=== PATIENT | female | born 1980 | race African-American/Black ===

== ENCOUNTER 2018-06-04 13:16 | Emergency (ER) | payer OTHER ==
[~2018-06-04] VITALS: Ht 162.6 cm; Wt 68.0 kg
[~2018-06-04 13:16] MED LIST: BACTROBAN 2% OI15 GM TOPIC; IBUPROFEN600 MG ORAL; NEURONTIN100 MG ORAL; NEXIUM20 M1 ORAL; NKM; NORCO 5-325 TA1 EACH ORAL; PREDNISONE50 MG ORAL; ROBAXIN-750750 MG PO; TYLENOL325 MG ORAL; ZOFRAN ODT4 MG ORAL
--- NOTE | 2018-06-04 13:36 | Emergency Room Report ---
History of Present Illness General Chief Complaint: Sore Throat Source: Patient Present Illness HPI 37-year-old female with no significant past medical history here complaining of 10 out of 10 sore throat 2 days. Patient went to her primary care provider yesterday and was given amoxicillin 500 mg 3 times a day and hasn't started the medication today. Patient has been taking ibuprofen and Tylenol for pain and complains of worsening pain. Denies rhinorrhea, congestion, cough, fever or chills patient wants something stronger for the pain denies. Radiation tingling and numbness. Denies chest pain, SOB, palpitation, nausea vomiting, abdominal pain and urinary symptoms. Has been able to swallow liquids and solids without problem. 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 Hx Gastrointestinal Problems: No Hx Dialysis: No Hx Neurological Problems: No Hx Cerebrovascular Accident: No Hx Seizures: No Review of Systems All Other Systems: negative except mentioned in HPI Physical Exam Vital Signs Date Time Temp Pulse Resp B/P (MAP) Pulse Ox O2 Delivery O2 Flow Rate FiO2 06/04/18 13:20 98.2 71 21 100/58 97 Room Air Sp02 EP Interpretation: reviewed General Appearance: normal inspection, well appearing, no apparent distress Head: normocephalic, atraumatic Eyes: bilateral eye normal inspection, bilateral eye PERRL ENT: hearing grossly normal, normal pharynx, no angioedema, TMs + canals normal , uvula midline, pharyngeal erythema, tonsillar exudate Neck: normal inspection, full range of motion, supple Respiratory: normal inspection, chest non-tender, lungs clear, normal breath sounds, no rhonchi Cardiovascular #1: normal inspection, normal peripheral pulses, regular rate, rhythm, no edema, no gallop Gastrointestinal: normal inspection, soft Rectal: deferred Neurologic: normal inspection, alert, oriented x3 Psychiatric: normal inspection, judgement/insight normal Skin: normal inspection, normal color, no rash, palpation normal Lymphatic: normal inspection, no adenopathy Medical Decision Making PA Attestation all diagnosis and treatment plans are reviewed and discussed my supervising physician Dr. Pacheco Diagnostic Impression: Primary Impression: Strep pharyngitis ER Course 37-year-old female with no significant past medical history here complaining of 10 out of 10 sore throat 2 days. Patient went to her primary care provider yesterday and was given amoxicillin 500 mg 3 times a day and hasn't started the medication today. Patient has been taking ibuprofen and Tylenol for pain and complains of worsening pain. Denies rhinorrhea, congestion, cough, fever or chills patient wants something stronger for the pain denies. Radiation tingling and numbness. Denies chest pain, SOB, palpitation, nausea vomiting, abdominal pain and urinary symptoms. Has been able to swallow liquids and solids without problem. Ddx considered but are not limited to strep pharyngitis, URI, throat pain due to other causes Vital signs: are WNL, pt. is afebrile H&PE are most consistent with strep pharyngitis ORDERS: lidocaine spray, Motrin 600 ED INTERVENTIONS: None required at this time. DISCHARGE: At this time pt. is stable for d/c to home. Will provide printed patient care instructions, and any necessary prescriptions. Care plan and follow up instructions have been discussed with the patient prior to discharge. narcotics are not indicated in strep pharyngitis give antibiotics a chance to work they usually 48 hours to be effective if worsening symptoms follow with primary care provider avoid sweet spicy food Last Vital Signs Date Time Temp Pulse Resp B/P (MAP) Pulse Ox O2 Delivery O2 Flow Rate FiO2 06/04/18 13:20 98.2 71 21 100/58 97 Room Air Disposition: HOME, SELF-CARE Condition: Stable Scripts Lidocaine HCl 2% Viscous (Lidocaine HCl 2% Viscous) 100 Ml Solution 15 ML ORAL TID, #100 ML Prov: Rodolfo Adams 06/04/18 Ibuprofen* (MOTRIN*) 600 Mg Tablet 600 MG ORAL FOUR TIMES A DAY, #30 TAB 0 Refills Prov: Rodolfo Adams 06/04/18 Patient Instructions: Sore Throat Additional Instructions: take medication as directed were given amoxicillin yesterday by her primary care provider continue taking the antibiotics as they usually take 24-48 hours to be effective. Continue with Motrin and take medications as directed no higher strength of pain medications are indicated for strep throat if worsening symptoms follows her primary care provider Rodolfo Adams Jun 04, 2018 13:36
[2018-06-04 13:38] VITALS: BP 100/58
--- NOTE | 2018-06-04 13:40 | NUR ---
ED Nurse Note:pt. came with c/o sore throat, seen by ER PA
[2018-06-04] MEDS ORDERED: IBUPROFEN600 MG ORAL (13:41)
[2018-06-04] MEDS ORDERED: LIDOCAINE VISC100 ML ORAL (13:41)
[2018-06-04 13:53] VITALS: BP 100/58
--- NOTE | 2018-06-04 13:55 | NUR ---
Ed Nurse Note: pt is cleared to be DC per ER provider, pt discharge and aftercare instruction provided w/ prescription, pt education done via discussion and handout, pt advised to follow up with pcp or return to ED if sx worsen or new sx develop, pt verbalized understanding and agrees with plan, pt vss, ambulatory w/ steady gait, all belongiongs left w/ pt, wristband removed.
== END 2018-06-04 14:00 | disposition home or self-care (01) ==
LOC: EMR 13:30
DX: J02.0 Streptococcal pharyngitis (principal)
CPT/HCPCS: 99282